=== PATIENT | male | born 1975 | race African-American/Black ===

== ENCOUNTER 2016-11-28 14:59 | Emergency (ER) | payer MEDICAID, OTHER ==
[~2016-11-28] VITALS: Wt 69.0 kg
[2016-11-28] MEDS ORDERED: OSLT75C PO (15:11)
[2016-11-28] MEDS ORDERED: D-ME473S18 PO (15:11)
[2016-11-28] MEDS ORDERED: AZIT250T94 PO (15:11)
[2016-11-28] MEDS ORDERED: ONDA4TAB8 PO (15:12)
[2016-11-28] MEDS ORDERED: NAPR-260 PO (15:12)
--- NOTE | 2016-11-28 15:18 | ERD ---
ER Documentation Chief Complaint Date/Time DATE: 11/28/16 TIME: 15:15 Chief Complaint fever cough and congestion for the past few days. HPI This is a 41-year-old male presents to the ER with fever cough and nasal congestion, nausea, body pain for the last 4 days. She states that cough is at night. Patient denies any vomiting or diarrhea. He tried [id number] medications however they have not worked. he denies any chest pain shortness of breath. He denies any wheezing. There are no sick contacts at home. Patient did not get his flu shot this year. ROS 12 point review of systems was done, all negative except per HPI. Medications Home Meds Active Scripts Naproxen* (Naprosyn*) 500 Mg Tablet, 500 MG PO BID Y for PAIN AND/OR INFLAMMATION, #30 TAB Prov:RAZ HAY 11/28/16 Ondansetron Hcl* (Zofran*) 4 Mg Tablet, 4 MG PO Q6H for NAUSEA AND/OR VOMITING, #30 TAB Prov:RAZ HAY 11/28/16 Azithromycin* (Zithromax*) 250 Mg Tablet, 250 MG PO .ZPACK DIRECTED, #6 TAB TAKE 500 MG (2 TABS) THE FIRST DAY THEN 250 MG (1 TAB) DAYS 2-5 Prov:RAZ HAY 11/28/16 Dextromethorphan Hb-Promethazine Hcl (Promethazine DM Syrup) 473 Ml Syrup, 10 ML PO Q6H Y for COUGH, #4 OZ Prov:RAZ HAY 11/28/16 Physical Exam Vitals Vital Signs Date Time Temp Pulse Resp B/P Pulse Ox O2 Delivery O2 Flow Rate FiO2 11/28/16 15:02 100.0 80 21 110/67 98 Physical Exam GENERAL: The patient is well-developed, well-nourished, in no acute distress. NECK: Cervical spine is non tender with no step off. Supple, no nuchal rigidity HEENT: Atraumatic. Pupils equal, round and reactive to light. Extraocular muscles are grossly intact. Conjunctivae pink, no discharge. Bilateral tympanic membranes are clear with no evidence of erythema, effusion or dulling of the light reflex. Tonsilar erythema with no exudates or uvular deviation. Clear rhinorrhea. RESPIRATORY: Clear to auscultation bilaterally. There are no rales, wheezes or rhonchi. HEART: Regular rate and rhythm. No murmurs, clicks, rubs or gallops. EXTREMITIES: No clubbing or cyanosis. Full range of motion. Grossly neurovascularly intact. NEUROLOGIC: Alert and oriented. Cranial nerves II through XII are intact. SKIN: There is no rash. The skin is warm and dry. Procedures/MDM Differential diagnosis includes but is not limited to; Viral URI, allergic rhinitis, bronchitis, pertussis,pneumonia. Patient will be given a trial of azithromycin only to be used if symptoms last longer than a week. I discussed with patient that he may have the influenza virus since he did not get his flu shot this year, but that it was too late to treat as it has been more than 48 hours. He was also given symptomatic relief. Clinical suspicion for pneumonia is low as patient appears well, is not hypoxic or in any respiratory distress. Additionally, patients physical examination is benign. Plan was discussed with patient they understand and agree. Patient needs to follow up with PCP in 1-2 days or return to ER sooner if symptoms worsen. Departure Diagnosis: Primary Impression: Upper respiratory infection Condition: Stable Patient Instructions: Preventing Common Respiratory Infections Additional Instructions: Call your primary care doctor TOMORROW for an appointment during the next 1-2 days.See the doctor sooner or return here if your condition worsens before your appointment time. RAZ HAY Nov 28, 2016 15:18
== END 2016-11-28 15:12 | disposition home or self-care (01) ==
LOC: E/R 14:59
DX: J06.9 Acute upper respiratory infection, unspecified (principal); R11.0 Nausea
CPT/HCPCS: 99284

== ENCOUNTER 2017-09-01 13:39 | Emergency (ER) | END 2017-09-01 15:32 | disposition home or self-care (01) ==